=== PATIENT | male | born 1950 | race African-American/Black ===

== ENCOUNTER 2018-02-11 12:52 | Inpatient (IN) | payer BC ==
[~2018-02-11] VITALS: Ht 180.3 cm; Wt 81.9 kg
[2018-02-11 12:59] VITALS: Ht 180.3 cm; Wt 81.9 kg
[2018-02-11 14:02] LABS: CALCIUM 8.6 mg/dL (8.5-10.1); CARBON DIOXIDE 28.9 mmol/L (21-32); CHLORIDE SERUM 104 mmol/L (98-107); CREATININE SERUM 0.8 mg/dL (0.7-1.3); GFR1 > 60 mL/min; GLUCOSE SERUM 112 mg/dL (74-106); POTASSIUM SERUM 3.6 mmol/L (3.5-5.1); SODIUM SERUM 137 mmol/L (136-145)
[2018-02-11 14:09] LABS: PLATELET COUNT 428 x10^3mcL (130-400); RED CELL DISTRIBUTION WIDTH 20.5 % (11.5-14.5)
[2018-02-11 14:13] LABS: ALBUMIN 3.7 g/dL (3.4-5.0); ALKALINE PHOSPHATASE 62 U/L (46-116); ALT/SGPT 17 U/L (16-63); AST/SGOT 20 U/L (15-37); BILIRUBIN TOTAL 0.29 mg/dL (0.20-1.00); TOTAL PROTEIN, SERUM 7.2 g/dL (6.4-8.2)
[2018-02-11 14:15] LABS: RED BLOOD CELLS 3.53 M/mm3 (4.52-5.90)
[2018-02-11 14:32] LABS: BAND NEUTROPHIL 0 % (0-10); BASOPHIL 0 % (0-2); MONOCYTE 1 % (0-7); SEGMENTED NEUTROPHILS 91 % (37-75)
[2018-02-11 14:33] LABS: PLATELET MORPHOLOGY PLATELETS NORMAL; rbc morphology (normal/abnorm) ABNORMAL (NORMAL)
[2018-02-11] MEDS ORDERED: GLUCOTROL5 MG PO (16:15)
[2018-02-11] MEDS ORDERED: METFORMIN HCL1000 MG PO (16:15)
[2018-02-11 16:42] LABS: PHOSPHOROUS 2.8 mg/dL (2.5-4.9)
[2018-02-11 16:53] VITALS: BP 160/62
[2018-02-11 16:53] LABS: T3 TOTAL 1.15 ng/mL
[2018-02-11 16:57] LABS: FREE T4 0.82 ng/dL (0.76-1.46); T4(THYROXINE) 6.3 ug/dL (4.7-13.3)
[2018-02-11 20:15] VITALS: BP 134/60
[2018-02-11 21:35] VITALS: BP 128/52
[2018-02-11 22:01] LABS: PLATELET COUNT 390 x10^3mcL (130-400)
[2018-02-11 22:07] LABS: RED CELL DISTRIBUTION WIDTH 23.4 % (11.5-14.5)
[2018-02-11 22:12] LABS: TOTAL IRON BINDING CAPACITY 372 ug/dL (250-450)
[2018-02-11 22:13] LABS: IRON 18 ug/dL (65-170)
[2018-02-11 22:29] LABS: BAND NEUTROPHIL 0 % (0-10); BASOPHIL 0 % (0-2); MONOCYTE 3 % (0-7); SEGMENTED NEUTROPHILS 73 % (37-75); rbc morphology (normal/abnorm) ABNORMAL (NORMAL)
[2018-02-11 23:20] VITALS: BP 140/59
[2018-02-11 23:45] VITALS: BP 134/56
[2018-02-12 01:20] VITALS: BP 145/58
[2018-02-12 05:45] VITALS: BP 135/52
[2018-02-12 06:37] LABS: CALCIUM 8.5 mg/dL (8.5-10.1); CARBON DIOXIDE 25.3 mmol/L (21-32); CHLORIDE SERUM 111 mmol/L (98-107); CREATININE SERUM 0.8 mg/dL (0.7-1.3); GFR1 > 60 mL/min; GLUCOSE SERUM 95 mg/dL (74-106); MAGNESIUM 1.8 mg/dL (1.8-2.4); POTASSIUM SERUM 4.4 mmol/L (3.5-5.1); SODIUM SERUM 146 mmol/L (136-145)
[2018-02-12 06:44] LABS: PLATELET COUNT 374 x10^3mcL (130-400)
[2018-02-12 07:45] LABS: RED CELL DISTRIBUTION WIDTH 28.2 % (11.5-14.5)
[2018-02-12 10:09] VITALS: BP 123/63
[2018-02-12 10:41] LABS: ATYPICAL LYMPH 2 %; BAND NEUTROPHIL 0 % (0-10); BASOPHIL 0 % (0-2); MONOCYTE 2 % (0-7); SEGMENTED NEUTROPHILS 91 % (37-75)
[2018-02-12 10:43] LABS: rbc morphology (normal/abnorm) ABNORMAL (NORMAL)
[2018-02-12 10:44] LABS: ovalocyte/elliptocyte 3+
[2018-02-12 10:45] LABS: PLATELET MORPHOLOGY PLATELETS NORMAL
[2018-02-12 11:02] LABS: microscopic required? NO
[2018-02-12 11:33] LABS: UA SPECIFIC GRAVITY 1.015 (1.005-1.035); urine erythrocyte NEGATIVE (NEGATIVE)
[2018-02-12 17:30] VITALS: BP 139/59
[2018-02-12 20:41] VITALS: BP 127/69
[2018-02-13 05:10] VITALS: BP 116/57
[2018-02-13 09:16] VITALS: BP 144/67
[2018-02-13] MEDS ORDERED: FERROUS SULFAT325 M2 PO (10:32)
[2018-02-13] MEDS ORDERED: COLACE100 MG PO (10:33)
[2018-02-13 11:15] VITALS: BP 144/67
== END 2018-02-13 12:10 | disposition home or self-care (01) | DRG 812 ==
LOC: ED 12:52 → MU 15:37
PROVIDERS: Emergency Medicine; Internal Medicine
PROC: 30233N1 Transfusion of Nonautologous Red Blood Cells into Peripheral Vein, Percutaneous Approach (ICD-10-PCS; principal; 2018-02-11)
DX: D50.0 Iron deficiency anemia secondary to blood loss (chronic) (principal); J98.11 Atelectasis; D47.3 Essential (hemorrhagic) thrombocythemia; E11.9 Type 2 diabetes mellitus without complications; Z92.3 Personal history of irradiation; F17.210 Nicotine dependence, cigarettes, uncomplicated; Z85.46 Personal history of malignant neoplasm of prostate; Z79.84 Long term (current) use of oral hypoglycemic drugs
CPT/HCPCS: 82962; 84439; 99406; J2916; J7050; P9016; Q0092; Q0163

== ENCOUNTER 2018-10-23 10:54 | Inpatient (IN) | payer BC ==
[~2018-10-23] VITALS: Ht 180.3 cm; Wt 81.6 kg
[~2018-10-23 10:54] MED LIST: COLACE100 MG PO; FERROUS SULFAT325 M2 PO; GLUCOTROL5 MG PO; METFORMIN HCL1000 MG PO
[2018-10-23 11:01] VITALS: Ht 180.3 cm; Wt 81.6 kg
--- NOTE | 2018-10-23 11:26 | NUR ---
PT BROUGHT IN TO ED BY SELF WITH C/O RECTAL PAIN. AT BEDSIDE PT IS AAOX4, RESPS E/U, SKIN IS PALE, WARN AND DRY. PERRLA. ALSO, PT IS CALM AND COOPERATIVE. PT AMBULATED FROM LOBBY TO ROOM WITH STEADY GAIT AND NO ASSIST. PT PLACED ON MONITOR. SP02=98% ON RA PT ORIENTED TO ROOM, USE OF CALL PAYNE AND BED IN LOWEST POSITION. BED RAIL IS UP X1 FOR SAFETY.
[2018-10-23 12:11] LABS: microscopic required? NO
[2018-10-23 12:38] LABS: UA SPECIFIC GRAVITY <=1.005 (1.005-1.035); urine erythrocyte NEGATIVE (NEGATIVE)
[2018-10-23 13:03] LABS: CALCIUM 9.5 mg/dL (8.5-10.1); CHLORIDE SERUM 105 mmol/L (98-107); CREATININE SERUM 0.9 mg/dL (0.7-1.3); GFR1 > 60 mL/min; GLUCOSE SERUM 153 mg/dL (74-106); POTASSIUM SERUM 4.4 mmol/L (3.5-5.1); SODIUM SERUM 141 mmol/L (136-145)
--- NOTE | 2018-10-23 13:10 | NUR ---
PT RESTING IN POSITION OF COMFORT. RESPS E/U, SKIN IS PALE, WARM AND DRY. SP02=99% ON RA. NO ACUTE DISTRESS NOTED AT THIS MOMENT.
[2018-10-23 13:11] LABS: PLATELET COUNT 469 x10^3mcL (130-400); RED CELL DISTRIBUTION WIDTH 18.5 % (11.5-14.5)
[2018-10-23 13:13] LABS: ALBUMIN 3.7 g/dL (3.4-5.0); ALKALINE PHOSPHATASE 49 U/L (46-116); ALT/SGPT 19 U/L (16-63); AST/SGOT 13 U/L (15-37); BILIRUBIN TOTAL 0.3 mg/dL (0.20-1.00); LIPASE 220 IU/L (73-393)
--- NOTE | 2018-10-23 14:00 | NUR ---
NO CHANGE IN PT STATUS, WILL CONTINUE TO MONITOR.
[2018-10-23 14:30] LABS: BAND NEUTROPHIL 0 % (0-10); BASOPHIL 0 % (0-2); MONOCYTE 12 % (0-7); SEGMENTED NEUTROPHILS 63 % (37-75); rbc morphology (normal/abnorm) ABNORMAL (NORMAL)
[2018-10-23 14:31] LABS: PLATELET MORPHOLOGY PLATELETS INCREASED
[2018-10-23] MEDS ORDERED: LIPI10 (15:20)
[2018-10-23 15:22] LABS: MAGNESIUM 1.9 mg/dL (1.8-2.4)
[2018-10-23 15:35] LABS: CHOLESTEROL/HDL RATIO 3.7
--- NOTE | 2018-10-23 15:56 | NUR ---
RECEIVED REPORT FROM HAYES LOPEZ IN ED. NOTED THAT PATIENT HAS BLOOD TRANSFUSION ORDERS AND INFORMED HAYES THAT THE BLOOD IS READY. HAYES STATED THAT HE WILL CONSULT WITH THE DOCTOR AND SEE WHAT THE DOCTOR WANTS TO DO. JENNIFER STATED THAT HE WILL CALL ME BACK.
--- NOTE | 2018-10-23 15:57 | NUR ---
HAND-OFF REPORT TO JOHN BOYD.
--- NOTE | 2018-10-23 16:04 | NUR ---
PER DR. FINE HAVE BLOOD STARTED UPSTAIRS. CHARGE NURSE MADE AWARE. ALSO, JOHN BOYD MADE AWARE.
--- NOTE | 2018-10-23 16:05 | NUR ---
RECEIVED CALL BACK FROM HAYES LOPEZ AND HESTATED THAT HE SPOKE WITH THE DOCTOR AND CHARGE NURSE AND THEY WANTED THE BLOOD TO BE STATRED UP HERE BECAUSE THEY NEEDED THE BED. WHILE CONSULTING WITH MY CHARGE NURSE THE PHONE CALL WAS SOMEHOW LOST AND THE PATIENT WAS BROUGHT TO THE FLOOR.
--- NOTE | 2018-10-23 16:09 | NUR ---
RECEIVED PT VIA [employer] FROM E/D, ACCOMPANIED BY RN AND TRANSPORTER. PT A/A/O X 4, CALM, COOPERATIVE TO CARE; WEARS GLASSES (W/ PT), [place]. AMBULATORY, NO GAIT OR BALANCE IMPAIRMENT NOTED WHEN WALKING FROM [facility] TO BED. DENIES CHEST PAIN OR DISCOMFORT AT THIS TIME. NO ACUTE RESPIRATORY DISTRESS NOTED. ABD SOFT, ROUND, NON-TENDER, NORMOACTIVE BOWEL SOUNDS X 4 QUADS, LAST BM 10/23/18, HARD; BRIANNA REFUSED, NO EXTERNAL HEMORRHOIDS OR BLEEDING NOTED; EXPERIENCES ACUTE SHARP PAIN TO RECTAL AREA 01/22 UPON DEFECATION ONLY. IV SITE RAC 18G, CDI. ORIENTED PT TO ROOM, BED CONTROLS, CALL LIGHT SYSTEM. SIDE RAILS UP X 2, BED IN LOW POSITION. WILL ENDORSE TO JOHN SAVAGE.
[2018-10-23 16:41] LABS: TOTAL IRON BINDING CAPACITY 405 ug/dL (250-450)
[2018-10-23 16:52] LABS: IRON 10 ug/dL (65-170)
[2018-10-23 16:55] VITALS: BP 146/49
[2018-10-23 17:01] LABS: RED BLOOD CELLS 3.46 M/mm3 (4.52-5.90)
[2018-10-23 17:30] VITALS: BP 139/61
--- NOTE | 2018-10-23 18:00 | NUR ---
ADMITTED BY JOHN GARG TO THE FLOOR AND HISTORY AND ACESSMENT NOTED ND PATIENT SI FULLY AMBULATORY AND VERY TALKATIVE AND FRIENDLY. PATIENT DENIES PAIN AT THIS TIME BUT WAS NOTED TO HAVE PAIN WITH BOWEL MOVEMENTS AND REPORTED TO THE PRIMARY DOCTOR. ORDER FOR BLOOD NOTED AND PATIEN THAS A HISTORY OF ANEMIA, PROSTATE CANCER AND DIABETES. PATIENT DID FOUR TO SIX WEEKS OF RADIATION. PATIENT RECIEVED A CLEAN BILL OF [employer] AND THAT WAS IN 2014. HE TAKES METFORMIN AT HOME FOR HIS DIABETES. 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 PATIENT LIVES IN [facility]. HE IS AMBULATORY AND WEARS GLASSES. DENIES STOMACH PAIN AT THIS TIME.
[2018-10-23 18:21] LABS: AMPHETAMINE QUAL UR NONE DETECTED (See below)
--- NOTE | 2018-10-23 19:18 | NUR ---
SEEN BY DR DE LA TORRE AND ADVISED OF PLAN FOR EGD AND COLONOCOPY FOR TOMORROW. PATIENT ON BLOOD INFUSION AT THIS TIME AND RECEIVED THE TYLENOL AND THE BENADRYL ORDERED. PATIENT WAS TOLD IN THE ER HE WOULD HAVE THE PREP AFTER THE BLOOD BUT DR DE LA TORRE DOES NOT WANT TO WAIT. PATIENT COMPLAINS OF PRESSURE AND PAIN WITH HAVING A STOOL. HE WAS SEEN BY HIS REGULAR DOCTOR IN [place] AND HE COULD NOT TOLERATE THE EXAM. HE LIVES NEARER [facility] AND HIS PRIMARY SENT HIM HERE AT [facility]. ER RECIEVED ORDERS FOR BLOOD AND WAS NOT STARTED OR CONSENT RECIEVED TILL HE ARRIVED TO THE FLOOR. PATIENT HAS THE BLOOD RUNNING AND THE SENOCOT GIVEN AND FOLLOWING WITH LACTULOSE AND THEN MOVI PREP ORDERED. PATIENT IS ANXIOUS ABOUT THIS THOUGH. SEVERAL TIMES HAD TO REMIND HIM THAT THIS IS NECESSARY FOR THE COLONOCOPY AND EGD. PATIENT DENIES EVER HAVING ANY GI PROCEDURE. PATIENT HAS AT THIS TIME VITALS AT 98.8, 83, 155/60, 18, 98% ON ROOM AIR. PATIENT DENIES PAIN AND LUNGS ARE CLEAR. HE DOES THOUGH APPEAR PALE TO THE FINGERS AND THE ARROUND THE EYES. HIS HANDS ARE COOL TO THE TOUCH. PATEINT HAS HISTORY OF PROSTATE CANCER AND PREVIOUS CHEMO. WILL CONTINUE TO MONITOR INDICATED.
--- NOTE | 2018-10-23 19:45 | NUR ---
RECEIVED REPORT FROM DAY SHIFT RN. PT RESTING IN BED. AA&O X4. NO SOB ON ROOM AIR. NO C/O PAIN. NO DISTRESS NOTED. IV TO RAC, INTACT. BLOOD TRANSFUSION IN PROGRESS. ON BOWEL PREP FOR EGD/COLONOSCOPY TOMORROW. SAFETY MEASURES IN PLACE. BED IN LOWEST POSITION. SIDE RAILS UP X2. INSTRUCTED THE PT TO USE THE CALL LIGHT FOR ASSISTANCE. CALL LIGHT WITHIN REACH.
--- NOTE | 2018-10-23 21:00 | NUR ---
TRANSFUSION OF 1 UNIT OF PRBC COMPLETED. NO ADVERSE REACTION. [facility] LAB DRAW ORDERED.
[2018-10-23 21:47] LABS: PLATELET COUNT 438 x10^3mcL (130-400); RED CELL DISTRIBUTION WIDTH 22.5 % (11.5-14.5)
[2018-10-23 22:02] LABS: BAND NEUTROPHIL 0 % (0-10); BASOPHIL 0 % (0-2); MONOCYTE 11 % (0-7); SEGMENTED NEUTROPHILS 66 % (37-75); ovalocyte/elliptocyte 1+; rbc morphology (normal/abnorm) ABNORMAL (NORMAL); tear drop cell (dacryocyte) 1+
[2018-10-23 22:03] LABS: PLATELET MORPHOLOGY PLATELETS INCREASED
[2018-10-23 22:44] VITALS: BP 141/63
--- NOTE | 2018-10-24 02:15 | NUR ---
PT RESTING WITH EYES CLOSED. BREATHING EVEN AND UNLABORED ON ROOM AIR. NO FACIAL GRIMACING. NO DISTRESS NOTED. SAFETY MEASURES IN PLACE. CALL LIGHT WITHIN REACH. WILL CONTINUE TO MONITOR.
[2018-10-24 06:06] VITALS: BP 132/60
--- NOTE | 2018-10-24 06:25 | NUR ---
PT RESTED IN INTERVALS DURING SHIFT. NO SOB ON ROOM AIR. NO C/O PAIN. NO DISTRESS NOTED. BOWEL PREP GIVEN. OUTPUT CLEAR. PT NPO FOR EGD/COLONOSCOPY TODAY. CONSENTS SIGNED. CHECKLIST STARTED. SAFETY MEASURES MAINTAINED. ALL NEEDS ATTENDED TO. WILL ENDORSE CONTINUITY OF CARE TO DAY SHIFT RN.
[2018-10-24 07:30] LABS: CALCIUM 9.7 mg/dL (8.5-10.1); CARBON DIOXIDE 23.9 mmol/L (21-32); CHLORIDE SERUM 106 mmol/L (98-107); GFR1 > 60 mL/min; GLUCOSE SERUM 126 mg/dL (74-106); MAGNESIUM 2.1 mg/dL (1.8-2.4); PHOSPHOROUS 3.6 mg/dL (2.5-4.9); POTASSIUM SERUM 4.1 mmol/L (3.5-5.1); SODIUM SERUM 140 mmol/L (136-145)
--- NOTE | 2018-10-24 07:35 | NUR ---
RECEIVED PT FROM SUPERVISOR HOT DIP TINNING. PT AWAKE, ALERT. A/OX4. PT ON ROOM AIR WITH NO RESP DISTRESS NOTED. LUNGS CTA. IV ACCESS RAC C/D/I INFUSING NS AT 100ML/HR. PERIPHERAL PULSES PALPABLE, NO EDEMA NOTED. ACTIVE BOWEL SOUNDS NOTED. PT HAD BM THIS MORNING, REPORTS NO BLEEDING. PT REPORTS SOME PAIN WITH PASSING BM POSSIBLY DUE TO "RAWNESS". NO PAIN OTHERWISE. NO ISSUES IDENTIFIED WITH VOIDING. PT AMBULATORY. SAFETY MEASURES IN PLACE, BED LOW AND LOCKED. CALL LIGHT WITHIN REACH.
[2018-10-24 07:58] VITALS: BP 106/64
[2018-10-24 08:31] LABS: PLATELET COUNT 426 x10^3mcL (130-400)
--- NOTE | 2018-10-24 09:47 | NUR ---
PROTONIX HELD DUE TO PLANNED PROCEDURE EGD/COLONOSCOPY. PT DID BOWEL PREP OVERNIGHT. PT ASLEEP AT THIS TIME WITH NO ACUTE DISTRESS OR DISCOMFORT NOTED.
[2018-10-24 10:31] LABS: BAND NEUTROPHIL 0 % (0-10); BASOPHIL 0 % (0-2); MONOCYTE 10 % (0-7); PLATELET MORPHOLOGY PLATELETS INCREASED; SEGMENTED NEUTROPHILS 70 % (37-75); rbc morphology (normal/abnorm) ABNORMAL (NORMAL)
[2018-10-24 10:33] LABS: ovalocyte/elliptocyte 1+; tear drop cell (dacryocyte) 1+
[2018-10-24 10:40] VITALS: BP 140/66
--- NOTE | 2018-10-24 10:52 | NUR ---
PT OFF THE FLOOR AT THIS TIME FOR PROCEDURE.
--- NOTE | 2018-10-24 12:02 | NUR ---
PT IN PROCEDURE AT THIS TIME. WILL DO ACCUCHECK WHEN PATIENT RETURNS.
--- NOTE | 2018-10-24 13:44 | NUR ---
PT STILL IN PROCEDURE AT THIS TIME.
--- NOTE | 2018-10-24 14:25 | NUR ---
PT BACK ON FLOOR FROM PROCEDURE. PT AWAKE, ALERT. NO ACUTE DISTRESS NOTED. PT DENIES PAIN AT THIS TIME. IV FLUIDS DISCONTINUED. PT PUT ON FULL LIQUID DIET. FAMILY AT BEDSIDE. VITAL SIGNS STABLE. SAFETY MAINTAINED.
[2018-10-24 14:26] VITALS: BP 147/75
--- NOTE | 2018-10-24 15:15 | NUR ---
FERRLICIT ADMINISTERED ORDERED. PT WITH NO ACUTE DISTRESS OR DISCOMFORT NOTED AT THIS TIME. FAMILY AT BEDSIDE. SAFETY MAINTAINED.
[2018-10-24 15:29] LABS: CARBON DIOXIDE 25.8 mmol/L (21-32); CHLORIDE SERUM 107 mmol/L (98-107); CREATININE SERUM 0.9 mg/dL (0.7-1.3); GFR1 > 60 mL/min; GLUCOSE SERUM 131 mg/dL (74-106); POTASSIUM SERUM 4.3 mmol/L (3.5-5.1); SODIUM SERUM 143 mmol/L (136-145)
[2018-10-24 15:30] LABS: PLATELET COUNT 426 x10^3mcL (130-400); RED CELL DISTRIBUTION WIDTH 22.5 % (11.5-14.5)
[2018-10-24 15:51] LABS: BAND NEUTROPHIL 2 % (0-10); BASOPHIL 0 % (0-2); MONOCYTE 9 % (0-7); PLATELET MORPHOLOGY PLATELETS INCREASED; SEGMENTED NEUTROPHILS 69 % (37-75); ovalocyte/elliptocyte 1+; rbc morphology (normal/abnorm) ABNORMAL (NORMAL); tear drop cell (dacryocyte) 1+
[2018-10-24 16:03] VITALS: BP 136/67
--- NOTE | 2018-10-24 17:30 | NUR ---
PT AWAKE ALERT, PT REQUESTING CHIPS AND CANDY FROM FAMILY MEMBER. EDUCATION PROVIDED REGARDING CONTROLLED CARB DIABETIC DIET. FAMILY VERBALIZED UNDERSTANDING. PT WITH NO ACUTE DISTRESS NOTED AT THIS TIME.
--- NOTE | 2018-10-24 18:30 | NUR ---
PT STABLE AT THIS TIME. ALL NEEDS TENDED TO THROUGHOUT SHIFT. WILL CONTINUE TO MONITOR AND ENDORSE CARE TO LINE UP WORKER. SAFETY MAINTAINED.
--- NOTE | 2018-10-24 19:10 | NUR ---
RECEIVED PT FROM PREVIOUS SHIFT NURSE. PT AOX4. MED SURG PT. DENIES CP/PRESSURE. DENIES SOB/DIFFICULTY BREATHING, ON RA. IV TO RAC, INTACT AND PATENT. BED IN LOWEST POSITION. CALL LIGHT WITHIN REACH. WILL CONTINUE TO MONITOR.
[2018-10-24 20:56] VITALS: BP 134/65
--- NOTE | 2018-10-25 02:30 | NUR ---
PT RESTING IN BED. RR EVEN AND UNLABORED. IN NO ACUTE DISTRESS. CALL LIGHT WITHIN REACH. BED IN LOWEST POSITION. WILL CONTINUE TO MONITOR.
[2018-10-25 05:54] VITALS: BP 123/55
[2018-10-25 06:59] LABS: CARBON DIOXIDE 22.4 mmol/L (21-32); CHLORIDE SERUM 107 mmol/L (98-107); CREATININE SERUM 0.8 mg/dL (0.7-1.3); GFR1 > 60 mL/min; GLUCOSE SERUM 102 mg/dL (74-106); MAGNESIUM 1.9 mg/dL (1.8-2.4); PHOSPHOROUS 3.5 mg/dL (2.5-4.9); POTASSIUM SERUM 3.9 mmol/L (3.5-5.1); SODIUM SERUM 141 mmol/L (136-145)
[2018-10-25 07:20] LABS: PLATELET COUNT 411 x10^3mcL (130-400); RED CELL DISTRIBUTION WIDTH 22.3 % (11.5-14.5)
--- NOTE | 2018-10-25 07:30 | NUR ---
RECEIVED HAND OFF REPORT FROM SONAL LOPEZ, FOUND PATIENT LEFT SIDE LAYING AWOKE WHEN ENTERED ROOM. PATIENT IS IN GOOD SPIRITS WITH NO COMPLAINTS A TTHIS TIME. CALL LIGHT WITHIN REACH, WILL CONTINUE TO MONITOR
[2018-10-25 08:46] VITALS: BP 115/61
--- NOTE | 2018-10-25 09:01 | NUR ---
PATIENT UP EATING BREAKFAST AT THIS TIME. NO COMPLAINTS, CALL LIGHT WITHIN REACH
--- NOTE | 2018-10-25 10:07 | NUR ---
ADMINISTERED MEDICATION PER MAR. FERLICIT NOT MIXED BY PHARMACY AT THIS TIME, WILL BE BROUHGT UP. DR DE LA TORRE SPOKE WITH PATIENT AND INFORMED PATIENT OF HEALING FOR TEAR IN ANUS. INSTRUCTING PATIENT TO CONTINUE WITH STOOL SOFTENERS AT HOME. PATIENT SITTING UP IN CHAIR RECEPTIVE OF INFORMATION. NO COMPLAINTS OF PAIN AT THIS TIME. CALL LIGHT WITHIN REACH
[2018-10-25] MEDS ORDERED: FERROUS SULFAT325 M2 PO (10:08)
--- NOTE | 2018-10-25 10:41 | NUR ---
STARTED FERRLECIT INFUSION PER JUN. DELAYED DUE TO PHARMACY HAD NOT MIXED MEDICATION. PATIENT INFORMED OF PENDING DISCHARGE ORDERS. CALL LIGHT WITHIN REACH, WILL CONTINUE TO MONITOR
[2018-10-25 11:26] VITALS: BP 115/61
--- NOTE | 2018-10-25 12:12 | NUR ---
BG RESULT WAS 171, PATIENT REFUSED INSULIN COVERAGE. PATIENT RESTING IN BED, CALL LIGHT WITHIN REACH
[2018-10-25 13:46] LABS: BAND NEUTROPHIL 2 % (0-10); SEGMENTED NEUTROPHILS 71 % (37-75)
[2018-10-25 13:47] LABS: MONOCYTE 10 % (0-7); rbc morphology (normal/abnorm) ABNORMAL (NORMAL)
[2018-10-25 13:48] LABS: burr cell (echinocyte) 1+; ovalocyte/elliptocyte 2+; schistocyte (helmet cell) 1+
[2018-10-25 13:50] LABS: PLATELET MORPHOLOGY PLATELETS NORMAL
--- NOTE | 2018-10-25 14:18 | NUR ---
PATIENT AND PRESENT FOR DISCHARGE TREACHING. PROVIDED PATIENT WITH PHOTOS FROM PROCEDURE, PRESCRIPTIONS, AND ADDITIONAL PAPERWORK WELL EDUCATION. PATIENT REMINDED OF CONTACT INFORMATION FOR DR DE LA TORRE. CONFIRMS SHE HAS CARD FROM DR DE LA TORRE. ANSWERED QLL QUESTIONS THAT AROSE. IV REMOVED WITH TIP INTACT. PATIENT ESCORTED FROM UNIT BY BELÉN ROA WITH ALL BELONGINGS.
== END 2018-10-25 14:15 | disposition home or self-care (01) | DRG 811 ==
LOC: ED 10:54 → MU 14:31 → DU 14:31 → MU 16:07
PROVIDERS: Emergency Medicine; Internal Medicine Gastroenterology; ADMIT Internal Medicine
PROC: 30233N1 Transfusion of Nonautologous Red Blood Cells into Peripheral Vein, Percutaneous Approach (ICD-10-PCS; principal; 2018-10-23)
PROC: 0DB68ZX Excision of Stomach, Via Natural or Artificial Opening Endoscopic, Diagnostic (ICD-10-PCS; 2018-10-24 13:00)
PROC: 0W3P8ZZ Control Bleeding in Gastrointestinal Tract, Via Natural or Artificial Opening Endoscopic (ICD-10-PCS; 2018-10-24 13:00)
DX: D50.0 Iron deficiency anemia secondary to blood loss (chronic) (principal); K55.21 Angiodysplasia of colon with hemorrhage; K31.7 Polyp of stomach and duodenum; K57.30 Diverticulosis of large intestine without perforation or abscess without bleeding; K62.7 Radiation proctitis; E11.65 Type 2 diabetes mellitus with hyperglycemia; E78.5 Hyperlipidemia, unspecified; Z68.25 Body mass index [BMI] 25.0-25.9, adult; Z85.46 Personal history of malignant neoplasm of prostate; Z92.3 Personal history of irradiation; Z79.84 Long term (current) use of oral hypoglycemic drugs; Y84.2 Radiological procedure and radiotherapy as the cause of abnormal reaction of the patient, or of later complication, without mention of misadventure at the time of the procedure
CPT/HCPCS: 43235; 45378; 82962; G0378; J1200; J1610; J2250; J2310; J2916; J3010; J3490; J7030; J7050; P9016; Q0092; Q0163; Q9966; Q9967

== ENCOUNTER 2019-04-15 03:05 | Inpatient (IN) | payer BC ==
[~2019-04-15] VITALS: Ht 180.3 cm; Wt 82.6 kg
[~2019-04-15 03:05] MED LIST changes: +LIPI10
[2019-04-15 03:17] VITALS: Ht 180.3 cm; Wt 82.6 kg
--- NOTE | 2019-04-15 03:45 | NUR ---
ASSESSMENT COMPLETED BY TRACY LOPEZ
--- NOTE | 2019-04-15 03:45 | NUR ---
PT CAME TO ED STS THAT HE HAD HIS BLOOD DRAWN YESTEDAY MORNING AT 1000. PT STS HE WAS CALLED THIS EVENING AND TOLD THAT HIS HGB WAS "LOW" AND HE NEEDED TO GO TO THE ED. PT STS HE DOESN'T KNOW WHAT THE LEVEL WAS. PT IS CURRENTY ASYMPTOMATIC. NO S/S OF DISTRESS. RESP E/U. COMFORT MEASURES IMPLEMENTED. WILL CONTINUE TO MONITOR.
[2019-04-15 04:30] LABS: BASOPHIL % 0.1 % (0-2)
[2019-04-15 04:44] LABS: PLATELET COUNT 476 x10^3mcL (130-400); RED CELL DISTRIBUTION WIDTH 18.5 % (11.5-14.5)
[2019-04-15 04:46] LABS: rbc morphology (normal/abnorm) ABNORMAL (NORMAL)
--- NOTE | 2019-04-15 05:15 | NUR ---
PT MEDICATED PER ORDER PT VERBALIZED UNDERSTANDING OF MEDICATION TEACHING SEE EMAR FOR DETAILS.
[2019-04-15 05:18] LABS: CALCIUM 8.7 mg/dL (8.5-10.1); CHLORIDE SERUM 103 mmol/L (98-107); CREATININE SERUM 0.9 mg/dL (0.7-1.3); GLUCOSE SERUM 128 mg/dL (74-106); SODIUM SERUM 139 mmol/L (136-145)
[2019-04-15 05:25] LABS: ALBUMIN 3.9 g/dL (3.4-5.0); ALKALINE PHOSPHATASE 55 U/L (46-116); ALT/SGPT 16 U/L (16-63); AST/SGOT 15 U/L (15-37); BILIRUBIN TOTAL 0.23 mg/dL (0.20-1.00); TOTAL PROTEIN, SERUM 7.2 g/dL (6.4-8.2)
--- NOTE | 2019-04-15 06:40 | NUR ---
BLOOD TRANSFUSION STARTED. BLOOD CHECKED W/GLADYS LOPEZ. WILL CONTINUE TO MONITOR. PT.
--- NOTE | 2019-04-15 06:58 | NUR ---
NO REACTION TO BLOOD AFTER 15 MINUTES
[2019-04-15 07:11] LABS: PHOSPHOROUS 2.9 mg/dL (2.5-4.9)
[2019-04-15 07:12] LABS: TOTAL IRON BINDING CAPACITY 426 ug/dL (250-450)
[2019-04-15 07:19] LABS: CHOLESTEROL/HDL RATIO 3.4; IRON 16 ug/dL (65-170)
--- NOTE | 2019-04-15 07:24 | NUR ---
REPORT CALLED TO JOHN SCHWARZ TO ASSUME CARE OF PT
--- NOTE | 2019-04-15 09:00 | NUR ---
RECEIVED PATIENT AOX4, NOT IN DISTRESS, TELE 5 , NSR, PALPABLE PULSES, NO EDEMA, CTA ON BLF, + BS, VOIDS WITH NO DYSURIA, NO WEANKESS, SKIN, PALE, DRY AND INTACT, NO PAIN AT THIS TIME, IV INTACT AT RFA NO REDNESS OR INFILTRATION. CALL LIGHT WITHIN REACH. BED AT LOWEST POSITION.
[2019-04-15 09:24] LABS: RED BLOOD CELLS 3.35 M/mm3 (4.52-5.90)
--- NOTE | 2019-04-15 09:30 | NUR ---
SEEN AOX4, NOT IN DISTRESS, PO MEDICATIONS, FESO4 AND COLACE GIVEN PRESCRIBED.
[2019-04-15 09:34] VITALS: BP 134/53
--- NOTE | 2019-04-15 10:30 | NUR ---
SEEN AOX4, NOT IN DISTRESS. DR OCHOA SEEN PATIENT. EDUCATION GIVEN. LACTULOSE GIVEN PO.
--- NOTE | 2019-04-15 11:30 | NUR ---
SEEN AOX4, VITAL SIGNS TAKEN . BP 141/55 20 , 98.1 , HR 73, 97% O2 SAT, INFORMED CONSENT FOR BLOOD TRANSFUSION VERIFIED,VERIFIED ORDER FOR BLOOD TRANSFUSION OF PRBC BLOOD BAG CONFIRMED WITH SECOND NURSE NICOLETTE, BLOOD BAG CHECKED FOR LEAKS OR BUBBLES, PATIENT PRIMED WITH 0.9%NACL BEFORE BLOOD TRANSFUSION. TRANSFUSION IN PROGRESS AT 1125.
--- NOTE | 2019-04-15 12:55 | NUR ---
ACCUCHECK DONE WITH CBG 145. NO INSULIN REQUIRED.
[2019-04-15 13:11] VITALS: BP 126/90
[2019-04-15 16:08] LABS: BASOPHIL % 0 % (0-2); PLATELET COUNT 424 x10^3mcL (130-400)
--- NOTE | 2019-04-15 16:20 | NUR ---
ACCUCHECK DONE 124 MG/DL. NO INSULIN REQUIRED.
[2019-04-15 17:26] VITALS: BP 105/61
--- NOTE | 2019-04-15 18:23 | NUR ---
FERROUS SULFATE PO GIVEN.
--- NOTE | 2019-04-15 19:00 | NUR ---
CARE ASSUMED FROM OUTGOING RN. PT RESTING COMFORTABLY IN BED. NO ACUTE DISTRESS NOTED. EVEN AND UNLABORED RESPIRATIONS ON RA. ON TELE# 5 [address] SR. IVL INTACT. NO C/O PAIN AT THIS TIME. DISCUSSED POC, PT VERBALIZED UNDERSTANING. BED IN LOWEST POSITION. SIDE RAILS UPX2. CALL LIGHT WITHIN REACH. WILL CONTINUE TO MONITOR.
--- NOTE | 2019-04-15 19:10 | NUR ---
FESO4 GIVEN PO.
--- NOTE | 2019-04-15 19:11 | NUR ---
ENDORSE TO TRIMMER AND REINFORCER NURSE GLORIA
[2019-04-15 20:10] VITALS: BP 136/64
--- NOTE | 2019-04-15 20:16 | NUR ---
PREMEDICATED PT WITH TYLENOL AND BENADRYL PER EMAR. PREVITALS TAKEN: 99.5F, 75BPM, 136/64, RR:18, 97% ON RA, 0/10 PAIN. BLOOD CHECKED WITH ARASELI LOPEZ. EDUCATED PT ON S/S OF ADVERSE REACTION, PT VERBALIZED UNDERSTANDING. IV PATENT AND INTACT, BLOOD STARTED AT 60ML/HR. WILL CONTINUE TO MONITOR.
[2019-04-15 20:30] VITALS: BP 136/63
--- NOTE | 2019-04-15 20:37 | NUR ---
POST 15 MIN BLOOD TRANSFUSION, NO ADVERSE REACTION NOTED. NO ACUTE DISTRESS NOTED. EVEN AND UNLABORED RESPIRATIONS ON RA. VS: 99.4F, 136/63, 77BPM, RR: 18, 98% ON RA, NO C/O PAIN. RATE INCREASED TO 130ML/HR. PT TOLERATING WELL. REEDUCATED ON S/S OF ADVERSE REACTION. PT VERBALIZED UNDERSTANDING. WILL CONTINUE TO MONITOR.
--- NOTE | 2019-04-15 22:51 | NUR ---
SPOKE WITH DR. FIELD REGARDING AMOUNT OF PRBC NEEDED. 2 UNIT GIVEN DURING DAY SHIFT. HEMOGLOBIN: 8.1. 3RD UNIT OF PRBC FINISHING. PER MD, 3 UNITS IS ENOUGH AT THIS TIME. WILL CONTINUE TO MONITOR.
[2019-04-15 23:00] VITALS: BP 135/52
--- NOTE | 2019-04-15 23:09 | NUR ---
3RD UNIT OF PRBCS COMPLETED. NO ADVERSER REACTION NOTED. VS: 98.7F, 74BPM, 135/52, RR: 18, 96% ON RA. NO C/O PAIN. LASIX PO GIVEN PER EMAR. IV FLUSHED, PATENT AND INTACT. NO ACUTE DISTRESS NOTED. WILL CONTINUE TO MONITOR.
--- NOTE | 2019-04-16 00:25 | NUR ---
PT RESTING COMFORTABLY IN BED WITH EYES CLOSED. NO ACUTE DISTRESS NOTED. EVEN AND UNLABORED RESPIRATIONS ON RA. ON TELE# 5 READING SR 68. IVL INTACT. BED IN LOWEST POSITION. SIDE RAILS UPX2. CALL LIGHT WITHIN REACH. WILL CONTINUE TO MONITOR.
[2019-04-16 05:10] VITALS: BP 138/68
[2019-04-16 05:45] LABS: microscopic required? NO
--- NOTE | 2019-04-16 06:04 | NUR ---
PT SLEPT COMFORTABLY IN INTERVALS THROUGHOUT THE SHIFT. ALL NEEDS TENDED TO AND MET. 3RD UNIT OF PRBC GIVEN, NO ADVERSE REACTIONS NOTED. ON TELE# 5 READING SR. IVL PATENT AND INTACT. BLOOD SUGARS CHECKED, 120 AND 107, NO COVERAGE NEEDED PER SLIDING SCALE. BED IN LOWEST POSITION. SIDE RAILS UPX2. CALL LIGHT WITHIN REACH. WILL ENDORSE TO ONCOMING SHIFT.
[2019-04-16 06:18] LABS: urine erythrocyte NEGATIVE (NEGATIVE)
--- NOTE | 2019-04-16 07:30 | NUR ---
RECEIVED PATIENT IN BED SITTING UP. ALERT ORIENTED VERBALIZES NEEDS WELL. HL PATENT RT F/A, FLUSHED WELL. TELEL 5 NSR. PATIENT DENIES ANY CHEST PAIN OR DISCOMFORT. AMBULATES AD UNRULY IN THE HALLWAYS, TOLERATING WELL. NO RESP DISTRESS NOTED, ON ROOM AIR. SKIN INTACT.
[2019-04-16 07:49] LABS: BASOPHIL % 0 % (0-2); PLATELET COUNT 411 x10^3mcL (130-400); RED CELL DISTRIBUTION WIDTH 24.5 % (11.5-14.5)
[2019-04-16 07:56] LABS: CARBON DIOXIDE 28.5 mmol/L (21-32); CHLORIDE SERUM 103 mmol/L (98-107); CREATININE SERUM 0.9 mg/dL (0.7-1.3); GLUCOSE SERUM 146 mg/dL (74-106); POTASSIUM SERUM 4.1 mmol/L (3.5-5.1); SODIUM SERUM 136 mmol/L (136-145)
[2019-04-16 08:06] VITALS: BP 132/61
[2019-04-16] MEDS ORDERED: FERROUS SULFAT325 M2 PO (10:03)
[2019-04-16] MEDS ORDERED: COLACE100 MG PO (10:03)
[2019-04-16] MEDS ORDERED: MIRALAX17 GM/Dose PO (10:06)
[2019-04-16 10:39] LABS: rbc morphology (normal/abnorm) ABNORMAL (NORMAL)
[2019-04-16 10:40] LABS: burr cell (echinocyte) 1+; ovalocyte/elliptocyte 1+; tear drop cell (dacryocyte) 1+
[2019-04-16 11:51] VITALS: BP 143/61
[2019-04-16 12:59] VITALS: BP 143/61
--- NOTE | 2019-04-16 14:30 | NUR ---
PATIENT READY FOR D/C HOME. HL AND TELE DC'D. DISCHARGE INSTRUCTIONS GIVEN. PERSONAL BELONGINGS LIST SIGNED. CONDITON APPEAR STABLE. DENIES ANY PAIN OR DISCOMFORT.
--- NOTE | 2019-04-16 15:40 | NUR ---
PATIENT'S PLAN OF CARE WAS DISCUSSED AND REVIEWED WITH INSOLE FILLER:LAWRENCE BLACKWELL. I HAVE REVIEWED THE DATA COLLECTION BY INSOLE FILLER (NAME):LAWRENCE BLACKWELL. ENTERED ON (DATE/TIME):04/15/19 I CONCUR WITH THE DATA AND ANY EXCEPTIONS OR COMMENTS ARE LISTED BELOW:
== END 2019-04-16 14:35 | disposition home or self-care (01) | DRG 812 ==
LOC: ED 03:05 → DU 06:08
PROVIDERS: Emergency Medicine; ADMIT Internal Medicine
PROC: 30233N1 Transfusion of Nonautologous Red Blood Cells into Peripheral Vein, Percutaneous Approach (ICD-10-PCS; principal; 2019-04-15)
DX: D50.9 Iron deficiency anemia, unspecified (principal); E11.65 Type 2 diabetes mellitus with hyperglycemia; E78.5 Hyperlipidemia, unspecified; K59.00 Constipation, unspecified; K64.9 Unspecified hemorrhoids; Z92.3 Personal history of irradiation; Z85.46 Personal history of malignant neoplasm of prostate; Z79.84 Long term (current) use of oral hypoglycemic drugs; Z68.25 Body mass index [BMI] 25.0-25.9, adult
CPT/HCPCS: 82962; 83880; G0378; J7030; J7040; J7042; P9016; Q0092; Q0163